=== PATIENT | male | born 1950 | race Caucasian/White ===

== ENCOUNTER 2022-07-06 07:35 | Inpatient (IN) | payer MEDICARE, MEDICAID, SELFPAY ==
[2022-07-06] VITALS (32 sets, daily range): BP systolic 83–114; BP diastolic 53–78; PULSE 85–119; RESP 13–24; TEMP 35.8; O2SAT 55–100
--- NOTE | 2022-07-06 07:51 | XR_ITS ---
WS: [id number] Exam: XR chest 1V portable [id number] Date/Time of Exam: 07/06/2022 8:25 AM Reason For Exam: dyspnea/cough No priors. The lungs are fully expanded and clear. Normal cardiomediastinal silhouette. No pleural effusions. Co arsening of interstitial markings noted that might represent chronic change. Bony structures are inta ct. Monitoring leads superimpose the chest. XR/XR chest 1V portable [id number] IMPRESSION: 1. No acute cardiopulmonary finding.
[2022-07-06 07:53] LABS: Glucose Point of Care > 600 mg/dL (70-110)
--- NOTE | 2022-07-06 07:58 | ED_ITS ---
HPI - General Adult General: Chief complaint: ER Hold Stated complaint: Slurred speech, Dizziness, Confusion, Weakness Time Seen by Provider: 07/06/22 07:44 Source: patient Mode of arrival: ambulatory History of Present Illness: 72-year-old male presents emergency room complaining of slurred speech dizziness and weakness confusion has been going on the last several days. He was seen his primary care doctor's office had a blood sugar of over 700. Evidently was advised to go to the emergency room but did not present until today he is a former smoker and former heavy drinker although he states he quit drinking some 20 to 30 years ago. He was recently. Symbicort and albuterol but has not picked that up yet. He is not a known diabetic at this point he has complained of polyuria polyphagia and polydipsia. Glucose on arrival and Accu-Chek is greater than 600. He denies any abdominal pain chest pain shortness of breath no hematochezia melena hematemesis cough cramps hematuria dysuria urgency or frequency. Onset (ago): minute(s) Severity: severe Relieving factors: none Exacerbating factors: none Associated symptoms: Reports confusion, decreased appetite, dyspnea, headach e(s), malaise, nausea, short of breath and weakness; Deny chest pain, cough, diaphoresis, fevers/chills, rash, palpitations, seizures, syncope or vomiting Treatments prior to arrival: none Review of Systems Const: Reports: malaise; Denies: fever(s), chills, fatigue or diaphoresis ENMT: Denies: throat pain, ear or mastoid pain, nasal discharge or nasal congestion Card: Denies: chest pain, palpitations or syncope Resp: Reports: dyspnea GI: Reports: nausea; Denies: abdominal pain or vomiting : Denies: flank pain, dysuria, urinary frequency or urinary urgency Skin/Breast: Denies: rash Neuro: Reports: headache(s) and confusion PFSH ED PFSH: Medical History COPD (chronic obstructive pulmonary disease) Recovering alcoholic Social History Smoking and tobacco status: former smoker Physical Exam Const: GENERAL APPEARANCE: cooperative and comfortable ORIENTATION/CONSCIOUSNESS: Yes awake and Yes oriented to time HENMT: COMMON NORMALS: normocephalic, atraumatic, hearing grossly normal bilaterally, external ears normal, EAC's normal, TM's normal bilaterally, Normal nasal mucous membranes and turbinates present, moist oral mucous membranes and oropharynx normal HEAD & SCALP: normocephalic and atraumatic NOSE: Normal nasal mucous membranes and turbinates present EXTERNAL EAR: Yes external ears normal EXTERNAL AUDITORY CANAL: EAC's normal TYMPANIC MEMBRANE: TM's normal bilaterally Resp: COMMON NORMALS: normal respiratory effort, No retractions, No use of accessory muscles and clear to auscultation bilaterally AUSCULTATION: clear to auscultation bilaterally Cardio: COMMON NORMALS: regular rate, regular rhythm and No murmurs present (Cardio) RATE: regular rate RHYTHM: regular rhythm GI: COMMON NORMALS: Soft to palpation and No hepatosplenomegaly present AUSCULTATION: Yes normoactive bowel sounds PALPATION: Yes Soft to palpation, No Tenderness to palpation present (GI), No Guarding due to palpation present (GI) and Yes No hepatosplenomegaly present Extremity: COMMON NORMALS: normal to inspection, capillary refill normal, no clubbing, cyanosis or edema, no calf tenderness and no pedal edema Neuro: SENSORIUM/ORIENTATION: Yes oriented to time Skin: COMMON NORMALS: no rashes or lesions noted GENERAL SKIN EXAM: no rashes or lesions noted Course Vital Signs: Vital signs: Vital Signs Temperature 96.5 F L 07/06/22 07:49 Pulse Rate 108 H 07/06/22 07:49 Respiratory Rate 21 H 07/06/22 07:49 Blood Pressure 93/59 07/06/22 07:49 [facility] - General Adult Medical Decision Making Acute metabolic encephalopathy secondary to his DKA CT of his head is negative chest x-ray is clear urine is still pending pH 696 positive ketones. Is been given 3 L of fluids started on insulin drip started given 10 units of IV push insulin. Altered mental the ICU discussed with hospitalist Medical Records I reviewed the patient's medical records. Lab Data I reviewed the patient's lab results. 07/06/22 08:00 07/06/22 08:00 Radiology Impressions Chest X-Ray 07/06/22 07:51 IMPRESSION: 1. No acute cardiopulmonary finding. Head CT 07/06/22 08:01 IMPRESSION: 1. No evidence of intracranial hemorrhage or mass effect. 2. Mild small vessel changes with moderate parenchymal volume loss. 3. Intracranial vascular calcification. 4. No acute intracranial findings. Laboratory Results WBC 14.3 10^3/uL (4.0-10.0) H 07/06/22 08:00 RBC 5.33 10^6/uL (4.1-5.3) H 07/06/22 08:00 Hgb 16.1 g/dL (11.7-16.6) 07/06/22 08:00 Hct 49.7 % (42.0-52.0) 07/06/22 08:00 MCV 93.2 fl (80-94) 07/06/22 08:00 MCH 30.2 pg (28.0-34.0) 07/06/22 08:00 MCHC 32.4 g/dL (30.0-36.0) 07/06/22 08:00 RDW 15.3 % (12.1-15.1) H 07/06/22 08:00 Plt Count 287 10^3/cmm (130-400) 07/06/22 08:00 MPV 9.0 fL (7.4-10.4) 07/06/22 08:00 Neut % (Auto) 84.8 % 07/06/22 08:00 Lymph % (Auto) 5.1 % 07/06/22 08:00 [place] % (Auto) 5.1 % 07/06/22 08:00 Eos % (Auto) 0.0 % 07/06/22 08:00 Baso % (Auto) 0.6 % 07/06/22 08:00 Neut # (Auto) 12.13 10^3/uL (1.8-7.7) H 07/06/22 08:00 Lymph # (Auto) 0.7 10^3/uL (0.8-4.8) L 07/06/22 08:00 [place] # (Auto) 0.7 10^3/uL (0.2-0.9) 07/06/22 08:00 Eos # (Auto) 0.0 10^3/uL (0.0-0.8) 07/06/22 08:00 Baso # (Auto) 0.1 10^3/uL (0.0-0.1) 07/06/22 08:00 Nucleated RBC % (auto) 0 % 07/06/22 08:00 Nucleated RBCs # 0.0 /100WBC 07/06/22 08:00 Specimen Type Arterial 07/06/22 08:11 Sample Site Radial, left 07/06/22 08:11 ABG pH 6.96 (7.35-7.45) L* 07/06/22 08:11 ABG pCO2 13.9 mmHg (35-45) L* 07/06/22 08:11 ABG pO2 129.0 mmHg (80.0-100.0) H 07/06/22 08:11 ABG HCO3 3.1 mmol/L (22-26) L 07/06/22 08:11 ABG O2 Saturation 97.1 07/06/22 08:11 ABG Base Excess -27.3 mmol/L (-2.0-2.0) L 07/06/22 08:11 Kevin Test Pos 07/06/22 08:11 A-a O2 Gradient 0.1 mmHg (5-10) L 07/06/22 08:11 Hematocrit 47.2 % (42-52) 07/06/22 08:11 Hgb O2 Saturation 94.5 % (95-100) L 07/06/22 08:11 Carboxyhemoglobin 0.8 %THgb (0.4-20.1) 07/06/22 08:11 Methemoglobin 1.9 % (0.4-1.5) H 07/06/22 08:11 Total Hemoglobin 15.4 g/dL (14-18) 07/06/22 08:11 Sodium 130.0 mmol/L (131-143) L 07/06/22 08:11 Potassium 5.2 mmol/L (3.5-5.0) H 07/06/22 08:11 Glucose 643.0 mg/dL (70-115) H 07/06/22 08:11 Ionized Calcium 1.3 mmol/L (1.1-1.4) 07/06/22 08:11 O2 Delivery Device None 07/06/22 08:11 Appeals Specialist ID [place] 07/06/22 08:11 Sodium 124 mmol/L (136-145) L 07/06/22 08:00 Potassium 5.5 mmol/L (3.5-5.1) H 07/06/22 08:00 Chloride 81 mmol/L (98-107) L 07/06/22 08:00 Carbon Dioxide 4 mmol/L (22-29) L* 07/06/22 08:00 Anion Gap 44.5 (5-19) H 07/06/22 08:00 BUN 35 mg/dL (8-23) H 07/06/22 08:00 Creatinine 2.0 mg/dL (0.7-1.2) H 07/06/22 08:00 GFR Calculation 33.2 mL/min (90-130) L 07/06/22 08:00 Glucose 635 mg/dL (65-115) H* 07/06/22 08:00 POC Glucose > 600 mg/dL (70-110) H* 07/06/22 09:15 Calculated Osmolality 296 mOsm/kg (285-295) H 07/06/22 08:00 Lactic Acid 5.0 mmol/L (0.5-2.2) H* 07/06/22 08:00 Calcium 9.2 mg/dL (8.5-10.5) 07/06/22 08:00 Magnesium 2.8 mg/dL (1.7-2.3) H 07/06/22 08:00 Total Bilirubin 0.3 mg/dL (0.15-1.2) 07/06/22 08:00 AST 18 U/L (0-40) 07/06/22 08:00 ALT 39 U/L (0-41) 07/06/22 08:00 Alkaline Phosphatase 123 U/L (40-130) 07/06/22 08:00 Troponin T Baseline 34 ng/L (0-15) H 07/06/22 08:00 Total Protein 7.6 g/dL (6.6-8.7) 07/06/22 08:00 Albumin 4.7 g/dL (3.5-5.2) 07/06/22 08:00 Globulin 2.9 g/dL (1.3-4.6) 07/06/22 08:00 Lipase 167 U/L (13-60) H 07/06/22 08:00 Serum Ketones Positive (Negative) H 07/06/22 08:00 Critical Care Time Critical Care Time: Critical Care Time: Yes Total Critical Care Time: 40 Attestation: The high probability of a clinically significant, sudden or life threatening deterioration of the patient's metabolic, DKA, encephalopathy system(s) required my full and direct attention, intervention and personal management. The critical care time is as shown. This time is in addition to time spent performing any reported procedures but includes the following: [x] Data and vital sign review and interpretation [x] Patient assessment, examination and intervention [x] Documentation [x] Medication orders and management Discharge Plan Discharge Patient Disposition: Admitted As Inpatient Clinical Impression: Diabetic ketoacidosis Condition: Stable Coding Level of Care Code ED Medical Record Technician for Maheshg Fwd Exam Detailed
--- NOTE | 2022-07-06 08:01 | CT_ITS ---
WS: [id number] CT HEAD TECHNIQUE: Noncontrast CT of the head obtained from the skullbase to the vertex. CLINICAL INFORMATION: Altered mental status slurred speech confusion COMPARISON: None. DLP: 1098.[address] scans at [facility] use at least one of these dose optimization techniques: automated e xposure control; mA and/or kV adjustment per patient size (includes targeted exams where dose is matc hed to clinical indication); or iterative reconstruction. FINDINGS: No evidence of intracranial hemorrhage or mass effect. Ventricular system and basal cisterns are wing nt. Mild small vessel changes with moderate parenchymal volume loss. No extra-axial fluid collections . Intracranial vascular calcification. Normal posterior nasopharynx. Normal parapharyngeal fat. Paranasal sinuses and mastoid air cells are well aerated. .Normal visualized soft tissues. CT/CT head wo con* [id number] IMPRESSION: 1. No evidence of intracranial hemorrhage or mass effect. 2. Mild small vessel changes with moderate parenchymal volume loss. 3. Intracranial vascular calcification. 4. No acute intracranial findings.
[2022-07-06] MEDS: sodium chloride 0.9% 1,000 ML 999 ML IV ×4 (08:02→11:23)
[2022-07-06] MEDS: ondansetron 2 mg/ML SDV 2 mL 4 MG IVP (08:03)
--- NOTE | 2022-07-06 08:03 | ECG_ITS ---
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 Measurements Intervals [place] Rate: 87 P: 0 TN: 0 QRS: 17 QRSD: 154 T: 106 QT: 408 QTc: 492 Interpretive Statements ATRIAL FIBRILLATION LEFT BUNDLE BRANCH BLOCK [120+ ms QRS DURATION, 80+ ms Q/S IN V1/V2, 85+ ms R IN I/aVL/V5/V6] No previous ECG available for comparison Electronically Signed On 07-07-2022 7:42:21 SOFTWARE IMPLEMENTATION PROJECT MANAGER by Fernando Herrera M.D. [email or web address] [email or web address]/store/[id number]
--- NOTE | 2022-07-06 08:18 | PC.NURSE ---
PT PLACED N CONTINUOUS NIBP, SPO2, AND CM
[2022-07-06 08:22] LABS: Alveolar-Arterial Oxygen Gradi 0.1 mmHg (5-10); Arterial Blood Gas Hematocrit 47.2 % (42-52); Base Excess ABG -27.3 mmol/L (-2.0-2.0); Blood Gas Allen Test Pos; Blood Gas Operator Identificat WALCI; Blood Gas Sample Site Radial, left; Blood Gas Sample Type Arterial; Carboxyhemoglobin 0.8 %THgb (0.4-20.1); HCO3 ABG 3.1 mmol/L (22-26); HGB O2 Sat 94.5 % (95-100); Ionized Calcium Level - ABG 1.3 mmol/L (1.1-1.4); Methemoglobin 1.9 % (0.4-1.5); Oxygen Saturation ABG 97.1; Potassium Level - ABG 5.2 mmol/L (3.5-5.0); Total Hemoglobin 15.4 g/dL (14-18)
[2022-07-06 08:23] LABS: ABG PCO2 13.9 mmHg (35-45); ABG PH Result 6.96 (7.35-7.45)
[2022-07-06 08:26] LABS: Basophils # 0.1 10^3/uL (0.0-0.1); Basophils % 0.6 %; Hematocrit 49.7 % (42.0-52.0); Hemoglobin 16.1 g/dL (11.7-16.6); Lymphocytes # 0.7 10^3/uL (0.8-4.8); Lymphocytes % 5.1 %; Mean Corpuscular HGB Conc 32.4 g/dL (30.0-36.0); Mean Corpuscular Hemoglobin 30.2 pg (28.0-34.0); Mean Corpuscular Volume 93.2 fl (80-94); Monocytes # 0.7 10^3/uL (0.2-0.9); Monocytes % 5.1 %; Neutrophils # 12.13 10^3/uL (1.8-7.7); Neutrophils % 84.8 %; Nucleated Red Blood Cells % 0 %; Platelet Count 287 10^3/cmm (130-400); Red Blood Count 5.33 10^6/uL (4.1-5.3); Red Cell Distribution Width 15.3 % (12.1-15.1); White Blood Count 14.3 10^3/uL (4.0-10.0)
[2022-07-06] MEDS: insulin regular-human 100 units/1 mL 10 UNIT IVP (08:46)
[2022-07-06 09:02] LABS: Alanine Aminotransferase 39 U/L (0-41); Albumin Level 4.7 g/dL (3.5-5.2); Alkaline Phosphatase 123 U/L (40-130); Anion Gap 44.5 (5-19); Aspartate Amino Transferase 18 U/L (0-40); Blood Urea Nitrogen 35 mg/dL (8-23); Calcium 9.2 mg/dL (8.5-10.5); Chloride 81 mmol/L (98-107); Globulin 2.9 g/dL (1.3-4.6); Glomerular Filtration Rate 33.2 mL/min (90-130); Lipase 167 U/L (13-60); Magnesium 2.8 mg/dL (1.7-2.3); Osmolality Calculated 296 mOsm/kg (285-295); Potassium 5.5 mmol/L (3.5-5.1); Sodium 124 mmol/L (136-145); Total Bilirubin 0.3 mg/dL (0.15-1.2); Total Protein 7.6 g/dL (6.6-8.7); Troponin(5th) Baseline 34 ng/L (0-15)
[2022-07-06 09:03] LABS: Ketone (Acetest) Serum Positive (Negative)
[2022-07-06 09:07] LABS: Carbon Dioxide 4 mmol/L (22-29); Glucose 635 mg/dL (65-115)
--- NOTE | 2022-07-06 09:52 | ECG_ITS ---
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 Measurements Intervals [place] Rate: 93 P: 0 [place]: 0 QRS: 27 QRSD: 137 T: 21 QT: 403 QTc: 503 Interpretive Statements ATRIAL FIBRILLATION LEFT BUNDLE BRANCH BLOCK [120+ ms QRS DURATION, 80+ ms Q/S IN V1/V2, 85+ ms R IN I/aVL/V5/V6] Compared to ECG 07/06/2022 08:03:16 No significant changes Electronically Signed On 07-07-2022 7:49:28 MEDIA SALES REPRESENTATIVE by Estefania Schuster M.D. [email or web address].[email or web address] general hospitalVaxx[facility]ault[facility] hospital.[employer]/store/OM/[id number]
[2022-07-06 10:02] LABS: Reflex Lactate Order REFLEX LACTIC ORDERD
--- NOTE | 2022-07-06 10:03 | PM.HP ---
Providers/Chief Complaint Admitting Physician: Jerry Flores MD, hospitalist Primary Care Provider: Mynor Lott MD Chief Complaint: Slurred speech, Dizziness, Confusion, Weakness History of Present Illness Reginald Mckeon is a 72 year old male presenting to the emergency department with elevated sugar. He reports he had recently been seen in clinic and sugar was about 700. He had not yet had any treatment started. Symptoms he had been having for quite a while were increased thirst, urination, dry mouth. More recently he started having some anorexia, and last night started vomiting repetitively. No blood in his emesis. No fever. Reports no prior history of diabetes, although he has not seen a doctor in over 40 years. He reports he used to drink very heavily but quit 20 years ago. Review of Systems General: Reports: 10 or more systems reviewed and unremarkable except in HPI and below Const: Reports: fatigue and malaise; Denies: fever(s) or chills Eyes: Reports: change in vision ENMT: Denies: throat pain Card: Denies: chest pain Resp: Denies: dyspnea GI: Reports: nausea and vomiting; Denies: abdominal pain, hematemesis, hematochezia or melena : Reports: urinary frequency Musc: Denies: neck pain Skin/Breast: Denies: rash Neuro: Denies: headache(s) Psych: Denies: anxiety or depression Endo: Reports: polyuria John/Lymph: Denies: easy bruising All/Imm: Denies: urticaria Medications/Allergies Home Medications Medication Instructions Recorded Confirmed Last Taken Type albuterol sulfate 90 mcg/actuation 2 puff inhalation Q4H PRN 07/06/22 07/06/22 Unknown History aerosol inhaler Shortness Of Breath budesonide-formoterol HFA 160 2 puff inhalation BID 07/06/22 07/06/22 Unknown History mcg-4.5 mcg/actuation aerosol inhaler Allergies Allergy/AdvReac Type Severity Reaction Status Date / Time No Known Allergies Allergy Verified 04/21/21 10:49 PFSH Acute PFSH: Medical History COPD (chronic obstructive pulmonary disease) Recovering alcoholic Family History (Updated 07/06/22 @ 11:30 by Jerry Flores MD) Other CAD (coronary artery disease) Cancer Social History (Updated 07/06/22 @ 11:30 by Jerry Flores MD) Smoking and tobacco status: former smoker Alcohol intake: former Substance/Drug Use: former Vitals/I&O/Wt Last Vital Signs Temp 96.5 F L 07/06/22 07:49 Pulse 108 H 07/06/22 07:49 Resp 21 H 07/06/22 07:49 BP 93/59 07/06/22 07:49 07/05/22 07/06/22 07/06/22 22:59 06:59 14:59 Intake Total 1616.05 / 1616.05 Balance 1616.05 / 1616.05 Weight last 48 hrs Weight 78.018 kg Physical Exam Narrative: General exam is a white male, alert and responsive, with mild tachypnea HEENT: Atraumatic normocephalic. Pupils equally round. Oropharynx is dry Neck is supple no lymphadenopathy thyromegaly Cardiovascular tachycardic, regular, no murmur Lungs clear no wheezing or crackles Abdomen is soft with positive bowel sounds. No obvious organomegaly exams deferred Extremities no cyanosis clubbing or edema, cap refill brisk Skin no rash Neuro no obvious focal deficits. Data 07/06/22 08:00 07/06/22 08:00 Other Labs: Troponin 34 with repeat of 31 Lipase 167 Serum ketones positive Lactic acid 5 Calcium 8.0 ABG demonstrated pH 6.96, PCO2 of 14, PO2 of 129 on room air Head CT no acute changes Chest x-ray negative EKG demonstrates sinus rhythm, left bundle branch block, borderline tachycardia, tracing with quite a bit of artifact Micro: Microbiology 07/06/22 08:10 Blood Culture - Preliminary Blood SPECIMEN COLLECTED A&P Assessment and plan (1) Diabetic ketoacidosis: Patient presents with DKA, with no prior history of diabetes Serial electrolytes, magnesium, phosphorus Appropriate fluid resuscitation is already been given in the emergency department Initiation of insulin drip When blood sugar becomes less than 250, initiate D5 half-normal saline with 20 mill equivalents of potassium per liter When anion gap is closed, consider initiation of long-acting insulin Check TSH Protonix 40 mg IV every 24 hours Consistent carb, clear liquid diet when able (2) Hyperkalemia: Likely secondary to acidosis, continue to follow (3) Acute kidney injury: Likely secondary to dehydration, continue to follow. Further work-up showed acute kidney injury persist Renally dose medicine, avoid renal toxic medication (4) Pseudohyponatremia: Secondary to marked hyperglycemia (5) Acute encephalopathy: Likely secondary to marked hyperglycemia/DKA consistent with acute metabolic encephalopathy. I expect this to resolve with treatment Plan Past history of alcoholism Full code Heparin for DVT prophylaxis Attestations Medical Necessity Statement*: Will require greater than 2 midnight stay secondary to new onset of DKA and patient with no previous history of diabetes Critical Care Time: The high probability of a clinically significant, sudden or life threatening deterioration of the patient's [endocrine, renal, metabolic] system(s) required my full and direct attention, intervention and personal management. The critical care time is as shown. This time is in addition to time spent performing any reported procedures but includes the following: [x] Data and vital sign review and interpretation [x] Patient assessment, examination and intervention [x] Documentation [x] Medication orders and management Critical Care Time (min): 55 Coding Level of Care Code Acute Code for Chg Fwd Diagnoses Diabetic ketoacidosis E11.10 Hyperkalemia E87.5 Acute kidney injury N17.9 Pseudohyponatremia R79.89 Acute encephalopathy G93.40
[2022-07-06 10:21] LABS: Glucose Point of Care > 600 mg/dL (70-110)
[2022-07-06 10:40] LABS: Troponin 5 2HR 31.21 ng/L (0-15)
[2022-07-06 10:41] LABS: Blood Urea Nitrogen 33 mg/dL (8-23); Chloride 92 mmol/L (98-107); Glomerular Filtration Rate 46.3 mL/min (90-130); Glucose 496 mg/dL (65-115); Osmolality Calculated 295 mOsm/kg (285-295); Sodium 128 mmol/L (136-145); Troponin 5 2HR Delta -2.79 ABS# (0-10)
[2022-07-06 10:44] LABS: Anion Gap 35.7 (5-19); Potassium 4.7 mmol/L (3.5-5.1)
[2022-07-06 10:45] LABS: Carbon Dioxide 5 mmol/L (22-29)
[2022-07-06] MEDS: insulin regular-human 250 UNIT in sodium chloride 0.9% 250 ML 14 UNIT IV (10:59)
[2022-07-06 11:25] LABS: Glucose Point of Care 502 mg/dL (70-110)
[2022-07-06] MEDS: heparin 5,000 unit/mL INJ 1 mL 5000 UNIT SUBCUT ×2 (11:26→23:04)
--- NOTE | 2022-07-06 11:49 | PC.NURSE ---
DR. BATISTA GAVE VERBAL ORDER TO HOLD D5 20MEQ POTASSIUM UNTIL PT BLOOD SUGAR IS LESS THAN OR EQUAL TO 250. DR. BATISTA GAVE VERBAL ORDER TO HOLD NS MAINTENANCE FLUID. VERBAL ORDERS READ BACK AND VERIFIED .
[2022-07-06] MEDS: sodium chlor 0.9% + KCl 20 mEq 20 MEQ/1,000 ML BAG 150 MEQ IV (11:59)
[2022-07-06 12:04] LABS: Thyroid Stimulating Hormone 3.96 uIU/mL (0.27-4.20)
[2022-07-06 12:07] LABS: Lactic Acid level (Lactate) 2.6 mmol/L (0.5-2.2)
[2022-07-06 12:31] LABS: Add Urine Microscopic? YES; Bilirubin Urine Neg (Negative); Blood Urine 3+ (Negative); Glucose Urine UA 4+ (Normal); Ketones Urine 3+ (Negative); Leukocyte Esterase Urine Negative (Negative); Nitrate Urine Negative (Negative); Protein Urine 1+ (Negative); RBC Urine 0-4 /hpf (0-2); Specific Gravity, Urine 1.025 (1.005-1.030); Squamous Epithelial Cell Urine 0-4 /hpf (0-5); Urine Appearance Clear (CLEAR); Urine Color Yellow (Yellow); Urobilinogen Urine Norm (Negative); WBC Urine 0-4 /hpf (0-5); pH Urine 5 (5-7)
[2022-07-06 12:32] LABS: Add Urine Culture? Yes; Amorphous Sediment Urine 2+ /hpf; Bacteria Urine 1+ /hpf; Mucus Urine TRACE /hpf
--- NOTE | 2022-07-06 12:56 | PC.NURSE ---
DR. BATISTA NOTIFIED OF PT NEW BLOOD SUGAR 421. DR. BATISTA NOTIFIED DRIP RATE DID NOT CHANGE
[2022-07-06 12:58] LABS: Glucose Point of Care 351 mg/dL (70-110)
--- NOTE | 2022-07-06 12:58 | PC.NURSE ---
BG 351
--- NOTE | 2022-07-06 13:52 | ECG_ITS ---
[facility] Test Date: 2022-07-06 Pat Name: Reginald Mckeon Department: Room: Gender: Male Hr Specialist: : 1950 Requested By: Shashi Laird Order Number: [id number] Lorena MD: Fernando Herrera M.D. Measurements Intervals [place] Rate: 95 P: 0 TX: 0 QRS: 9 QRSD: 131 T: 81 QT: 396 QTc: 499 Interpretive Statements UNCERTAIN REGULAR RHYTHM LEFT BUNDLE BRANCH BLOCK [120+ ms QRS DURATION, 80+ ms Q/S IN V1/V2, 85+ ms R IN I/aVL/V5/V6] Compared to ECG 07/06/2022 11:42:04 Atrial fibrillation no longer present Electronically Signed On 07-07-2022 7:48:56 SINGLE STROKE PREFORMER by Fernando Herrera M.D. [email or web address]osOrlando Telephone Companyket[email or web address]/[id number]
[2022-07-06 13:59] LABS: Glucose Point of Care 317 mg/dL (70-110)
[2022-07-06] MEDS: albuterol 2.5 mg/3 mL Neb INHALATION ×2 (14:23→19:52)
[2022-07-06] MEDS: ipratropium 0.5 mg/2.5 mL Neb INHALATION ×2 (14:23→19:52)
[2022-07-06 15:01] LABS: Glucose Point of Care 240 mg/dL (70-110)
[2022-07-06 15:10] LABS: Anion Gap 27.1 (5-19); Blood Urea Nitrogen 33 mg/dL (8-23); Calcium 8.3 mg/dL (8.5-10.5); Chloride 101 mmol/L (98-107); Glomerular Filtration Rate 46.3 mL/min (90-130); Glucose 219 mg/dL (65-115); Magnesium 2.2 mg/dL (1.7-2.3); Osmolality Calculated 288 mOsm/kg (285-295); Potassium 4.1 mmol/L (3.5-5.1); Sodium 132 mmol/L (136-145)
[2022-07-06 15:13] LABS: Carbon Dioxide 8 mmol/L (22-29)
[2022-07-06] MEDS: D5-NS 0.45% + KCL 20 mEq 20 MEQ/1,000 ML BAG 100 MEQ IV ×2 (15:35→23:04)
[2022-07-06 16:15] LABS: Glucose Point of Care 196 mg/dL (70-110)
[2022-07-06 17:08] LABS: Glucose Point of Care 421 mg/dL (70-110)
[2022-07-06 17:08] LABS: Glucose Point of Care 528 mg/dL (70-110)
[2022-07-06 18:08] LABS: Glucose Point of Care 155 mg/dL (70-110)
[2022-07-06 18:08] LABS: Glucose Point of Care 153 mg/dL (70-110)
[2022-07-06 18:08] LABS: Glucose Point of Care 430 mg/dL (70-110)
[2022-07-06 19:10] LABS: Glucose Point of Care 164 mg/dL (70-110)
[2022-07-06] MEDS: budesonide 0.5 mg/2 mL Neb INHALATION (19:52)
[2022-07-06 20:12] LABS: Glucose Point of Care 154 mg/dL (70-110)
[2022-07-06 22:08] LABS: Anion Gap 17.3 (5-19); Blood Urea Nitrogen 28 mg/dL (8-23); Calcium 8.5 mg/dL (8.5-10.5); Carbon Dioxide 16 mmol/L (22-29); Chloride 106 mmol/L (98-107); Glomerular Filtration Rate 59.9 mL/min (90-130); Glucose 145 mg/dL (65-115); Osmolality Calculated 290 mOsm/kg (285-295); Potassium 3.3 mmol/L (3.5-5.1); Sodium 136 mmol/L (136-145)
[2022-07-07] VITALS (29 sets, daily range): BP systolic 84–123; BP diastolic 46–72; PULSE 87–143; RESP 15–28; TEMP 36.7–37.2; O2SAT 59–93
[2022-07-07 01:04] LABS: Glucose Point of Care 140 mg/dL (70-110)
[2022-07-07 01:04] LABS: Glucose Point of Care 125 mg/dL (70-110)
[2022-07-07 01:04] LABS: Glucose Point of Care 132 mg/dL (70-110)
[2022-07-07 01:04] LABS: Glucose Point of Care 129 mg/dL (70-110)
[2022-07-07 01:04] LABS: Glucose Point of Care 129 mg/dL (70-110)
[2022-07-07 04:17] LABS: Blood Urea Nitrogen 24 mg/dL (8-23); Calcium 8.4 mg/dL (8.5-10.5); Carbon Dioxide 17 mmol/L (22-29); Glomerular Filtration Rate 83.4 mL/min (90-130); Glucose 81 mg/dL (65-115); Magnesium 2.1 mg/dL (1.7-2.3)
[2022-07-07 04:18] LABS: Basophils % 0.1 %; Eosinophils % 0.1 %; Hematocrit 37.4 % (42.0-52.0); Hemoglobin 13.2 g/dL (11.7-16.6); Lymphocytes # 0.5 10^3/uL (0.8-4.8); Mean Corpuscular HGB Conc 35.3 g/dL (30.0-36.0); Mean Corpuscular Hemoglobin 30.9 pg (28.0-34.0); Mean Platelet Volume 10.4 fL (7.4-10.4); Monocytes # 0.7 10^3/uL (0.2-0.9); Monocytes % 8.9 %; Neutrophils # 6.95 10^3/uL (1.8-7.7); Neutrophils % 84.1 %; Nucleated Red Blood Cells % 0 %; Platelet Count 123 10^3/cmm (130-400); Red Blood Count 4.27 10^6/uL (4.1-5.3); Red Cell Distribution Width 15.4 % (12.1-15.1); White Blood Count 8.3 10^3/uL (4.0-10.0)
[2022-07-07 04:19] LABS: Mean Corpuscular Volume 87.6 fl (80-94)
[2022-07-07 04:50] LABS: Chloride 104 mmol/L (98-107); Osmolality Calculated 279 mOsm/kg (285-295); Sodium 133 mmol/L (136-145)
[2022-07-07 05:01] LABS: Anion Gap 15.3 (5-19); Potassium 3.3 mmol/L (3.5-5.1)
[2022-07-07 05:03] LABS: Phosphorus 0.7 mg/dL (2.5-4.5)
[2022-07-07 06:05] LABS: Glucose Point of Care 98 mg/dL (70-110)
[2022-07-07 06:05] LABS: Glucose Point of Care 87 mg/dL (70-110)
[2022-07-07 06:05] LABS: Glucose Point of Care 98 mg/dL (70-110)
[2022-07-07 06:05] LABS: Glucose Point of Care 100 mg/dL (70-110)
[2022-07-07 06:05] LABS: Glucose Point of Care 84 mg/dL (70-110)
--- NOTE | 2022-07-07 07:03 | PC.NURSE ---
Critical Phos was sent via voalte to Dr. Jolley. No response was received.
[2022-07-07 07:53] LABS: Glucose Point of Care 103 mg/dL (70-110)
[2022-07-07] MEDS: budesonide 0.5 mg/2 mL Neb INHALATION (07:57)
[2022-07-07] MEDS: ipratropium 0.5 mg/2.5 mL Neb INHALATION ×2 (07:57→13:34)
[2022-07-07] MEDS: albuterol 2.5 mg/3 mL Neb INHALATION ×2 (07:57→13:34)
[2022-07-07 08:29] LABS: Estmated Average Glucose 306; Hemoglobin A1C 12.3 % (4.0-6.0)
--- NOTE | 2022-07-07 09:04 | P.PN_ITS ---
Subjective Subjective: Reginald reports he is feeling better. No nausea. Denies any abdominal pain. He is ready to eat. Medications: Reviewed: Yes Vitals/I&O/Wt Last Vital Signs Temp 96.5 F L 07/06/22 07:49 Pulse 87 07/07/22 07:57 Resp 17 07/07/22 07:57 BP 84/52 07/07/22 06:00 Pulse Ox 92 07/07/22 07:57 O2 Del Method 07/07/22 07:57 07/06/22 07/07/22 07/07/22 22:59 06:59 14:59 Intake Total 1624.213 / 4283.430 1269.103 / 5552.533 Output Total 350 / 850 Balance 1624.213 / 3783.430 919.103 / 4702.533 Weight last 48 hrs Weight 77.564 kg Weight 78.018 kg Physical Exam Narrative: General exam is a white male no distress Neck is supple no lymphadenopathy thyromegaly Cardiovascular tachycardic, regular, no murmur Lungs clear no wheezing or crackles Abdomen is soft with positive bowel sounds. No obvious organomegaly Extremities no cyanosis clubbing or edema, cap refill brisk Skin no rash Data 07/07/22 02:55 07/07/22 02:55 Micro: Microbiology 07/06/22 08:10 Blood Culture - Preliminary Blood NEGATIVE TO DATE 07/06/22 08:12 Blood Culture - Preliminary Blood SPECIMEN COLLECTED A&P Assessment and plan (1) Diabetic ketoacidosis: Patient presents with DKA, with no prior history of diabetes Anion gap is closed Discontinue insulin drip, placed on diet, initiate sliding scale, initiate long acting Lantus Diabetic education Change fluids for maintenance fluids TSH was checked and normal Change Protonix to p.o. (2) Hyperkalemia: Resolved (3) Acute kidney injury: Likely secondary to dehydration, continue to follow. Resolved (4) Pseudohyponatremia: Resolved (5) Acute encephalopathy: Likely secondary to marked hyperglycemia/DKA consistent with acute metabolic enc ephalopathy. Resolved Plan Hypokalemia and hypophosphatemia, supplement Past history of alcoholism Full code Heparin for DVT prophylaxis Probable transfer out of ICU today. Attestations Medical Necessity Statement*: Needs continued hospitalization, transitioning to subcutaneous insulin from insulin drip. Coding Level of Care Code Acute Code for Chg Fwd Diagnoses Diabetic ketoacidosis E11.10 Hyperkalemia E87.5 Acute kidney injury N17.9 Pseudohyponatremia R79.89 Acute encephalopathy G93.40
[2022-07-07 09:15] LABS: Glucose Point of Care 163 mg/dL (70-110)
[2022-07-07] MEDS: sodium chlor 0.45% +KCl 20 mEq 20 MEQ/1,000 ML BAG 75 MEQ IV (09:25)
[2022-07-07] MEDS: insulin glargine 100 units/1 mL 20 UNIT SUBCUT (09:34)
[2022-07-07] MEDS: heparin 5,000 unit/mL INJ 1 mL 5000 UNIT SUBCUT ×2 (09:45→23:57)
--- NOTE | 2022-07-07 12:01 | PC.CHAP ---
Pastoral Care Encounter/Spiritual Assessment Type of Contact [] Declined neighborhood conservation officer visit [] Patient/Family/Request visit [] Outpatient visit [] Follow-up visit [] Physician referral [] Code/Alert [x] Routine visit [] Staff referral [] Actively dying [] Patient sleeping [] Family support [] [] Out of room [] Palliative care [] [x] Receiving care in room [] Pre-surgical visit [] Trauma [] Long length of stay [x] ICU visit [] Other: Relational/Emotional Strength [] Patient feels connected with others/family/visitors/staff [] Distress [] Loneliness/isolation [] Abandonment Spirituality of Patient [] Person of [place] [] Attends Samaritan of their [place] [] Believes in Prayer [] Reads Bible or Cheondoism materials [] There are Spiritual issues to be addressed Software Developer Interventions [x] Prayer [] Active listening [] Non-anxious presence [] Spiritual/emotional support [] Crisis/trauma care [] Spiritual counseling [] Bereavement support [] Provided bereavement packet [] Provided Bible/devotional materials [] Provided toy/stuffed animal, coloring book to patient or family member [] Provided Communion [] Anointing/[place] [] Salvation [x] Completed spiritual assessment [] Other: Impact on Illness or Injury [] Angry [] Fearful [] Anxious [] Often cries [] Exhaustion [] Unable to work [] Unable to attend amish [] Unable to walk/stand [] Unable to read [] Unable to drive [] Unable to eat/drink [] Unable to sleep [] Unable to be with family [] Patient intubated [] Other: Summary Time spent with patient
[2022-07-07 12:16] LABS: Glucose Point of Care 323 mg/dL (70-110)
[2022-07-07] MEDS: insulin lispro 100 unit/1 mL SUBCUT (12:38)
[2022-07-07 13:41] LABS: Anion Gap 23.1 (5-19); Blood Urea Nitrogen 20 mg/dL (8-23); Calcium 8.2 mg/dL (8.5-10.5); Carbon Dioxide 12 mmol/L (22-29); Chloride 97 mmol/L (98-107); Glomerular Filtration Rate 83.4 mL/min (90-130); Glucose 340 mg/dL (65-115); Osmolality Calculated 282 mOsm/kg (285-295); Potassium 4.1 mmol/L (3.5-5.1); Sodium 128 mmol/L (136-145)
[2022-07-07] MEDS: insulin regular-human 250 UNIT in sodium chloride 0.9% 250 ML 11.62 UNIT IV (15:18)
[2022-07-07] MEDS: D5-NS 0.45% + KCL 20 mEq 20 MEQ/1,000 ML BAG 125 MEQ IV ×2 (15:19→23:57)
[2022-07-07 16:04] LABS: Glucose Point of Care 443 mg/dL (70-110)
[2022-07-07 16:31] LABS: Glucose Point of Care 449 mg/dL (70-110)
[2022-07-07 17:29] LABS: Glucose Point of Care 381 mg/dL (70-110)
[2022-07-07 18:54] LABS: Glucose Point of Care 415 mg/dL (70-110)
--- NOTE | 2022-07-07 18:54 | PC.NURSE ---
Shift Note: Pt rested in bed throughout the shift. No nausea or vomiting this shift. He was off the insulin gtt from 0700 [id number]. It was restarted due to his anion gap. He is tolerating it well. He has ate all of his meals. He uses the urianl, 1200ml output noted. New diabetic teaching done: insulin, long and shoft acting, blood sugar checks, insulin syringe measurement and use done. Pt very responsive and able to demonstrated/verbalize understanding. Frequent safety and comfort rounds continue. Orders and/or nursing care completed as indicated. Patient monitored for response to intervention and treatment(s). Education provided includes insulins, diabetes, hypoglycemia, etc. thoroughly discussed Patient verbalized and demonstrated understanding. Will continue to monitor.
[2022-07-07 19:43] LABS: Glucose Point of Care 306 mg/dL (70-110)
[2022-07-07 21:01] LABS: Blood Urea Nitrogen 19 mg/dL (8-23); Calcium 8.5 mg/dL (8.5-10.5); Carbon Dioxide 18 mmol/L (22-29); Chloride 99 mmol/L (98-107); Glomerular Filtration Rate 73.9 mL/min (90-130); Glucose 247 mg/dL (65-115); Magnesium 2.1 mg/dL (1.7-2.3); Osmolality Calculated 281 mOsm/kg (285-295); Sodium 130 mmol/L (136-145)
[2022-07-07 21:09] LABS: Anion Gap 16.5 (5-19); Potassium 3.5 mmol/L (3.5-5.1)
[2022-07-07 21:24] LABS: Glucose Point of Care 324 mg/dL (70-110)
[2022-07-07 22:58] LABS: Glucose Point of Care 95 mg/dL (70-110)
[2022-07-08] VITALS (31 sets, daily range): BP systolic 82–116; BP diastolic 49–91; PULSE 87–128; RESP 18–32; TEMP 36.8–38.8; O2SAT 78–94
[2022-07-08 01:58] LABS: Blood Urea Nitrogen 16 mg/dL (8-23); Calcium 8.2 mg/dL (8.5-10.5); Carbon Dioxide 19 mmol/L (22-29); Chloride 102 mmol/L (98-107); Glomerular Filtration Rate 95.6 mL/min (90-130); Glucose 90 mg/dL (65-115); Osmolality Calculated 273 mOsm/kg (285-295); Sodium 131 mmol/L (136-145)
[2022-07-08 02:00] LABS: Anion Gap 13.5 (5-19)
[2022-07-08 02:01] LABS: Potassium 3.5 mmol/L (3.5-5.1)
[2022-07-08] MEDS: insulin glargine 100 units/1 mL 10 UNIT SUBCUT (03:21)
[2022-07-08 04:45] LABS: Glucose Point of Care 166 mg/dL (70-110)
[2022-07-08 05:22] LABS: Glucose Point of Care 118 mg/dL (70-110)
[2022-07-08 05:22] LABS: Glucose Point of Care 302 mg/dL (70-110)
[2022-07-08 05:22] LABS: Glucose Point of Care 126 mg/dL (70-110)
[2022-07-08 05:22] LABS: Glucose Point of Care 127 mg/dL (70-110)
[2022-07-08 05:22] LABS: Glucose Point of Care 137 mg/dL (70-110)
[2022-07-08 05:22] LABS: Glucose Point of Care 95 mg/dL (70-110)
[2022-07-08 05:58] LABS: Basophils % 0.2 %; Hemoglobin 11.3 g/dL (11.7-16.6); Lymphocytes # 0.5 10^3/uL (0.8-4.8); Lymphocytes % 9.6 %; Mean Corpuscular HGB Conc 35.3 g/dL (30.0-36.0); Mean Corpuscular Hemoglobin 31.1 pg (28.0-34.0); Mean Corpuscular Volume 88.2 fl (80-94); Monocytes # 0.5 10^3/uL (0.2-0.9); Monocytes % 9.2 %; Neutrophils # 4.44 10^3/uL (1.8-7.7); Neutrophils % 80.3 %; Nucleated Red Blood Cells % 0 %; Platelet Count 90 10^3/cmm (130-400); Red Blood Count 3.63 10^6/uL (4.1-5.3); Red Cell Distribution Width 15.5 % (12.1-15.1); White Blood Count 5.5 10^3/uL (4.0-10.0)
[2022-07-08 06:19] LABS: Anion Gap 16.3 (5-19); Blood Urea Nitrogen 14 mg/dL (8-23); Carbon Dioxide 18 mmol/L (22-29); Chloride 99 mmol/L (98-107); Glomerular Filtration Rate 95.6 mL/min (90-130); Glucose 202 mg/dL (65-115); Magnesium 1.9 mg/dL (1.7-2.3); Osmolality Calculated 276 mOsm/kg (285-295); Phosphorus 1.7 mg/dL (2.5-4.5); Potassium 3.3 mmol/L (3.5-5.1); Sodium 130 mmol/L (136-145)
[2022-07-08] MEDS: ipratropium 0.5 mg/2.5 mL Neb INHALATION ×2 (08:13→20:01)
[2022-07-08] MEDS: albuterol 2.5 mg/3 mL Neb INHALATION ×2 (08:13→20:01)
[2022-07-08] MEDS: budesonide 0.5 mg/2 mL Neb INHALATION ×2 (08:13→20:00)
[2022-07-08 08:25] LABS: Glucose Point of Care 234 mg/dL (70-110)
--- NOTE | 2022-07-08 08:40 | PM.PN ---
Subjective Subjective: Reginald went back on an insulin drip yesterday afternoon. Anion gap closed him this was discontinued late in the night. He states he feels good. He has had a bowel movement. No pain. Denies any nausea or vomiting. Medications: Reviewed: Yes Vitals/I&O/Wt Last Vital Signs Temp 98.3 F 07/08/22 04:00 Pulse 99 07/08/22 08:19 Resp 18 07/08/22 08:14 BP 90/56 07/08/22 06:00 Pulse Ox 92 07/08/22 08:14 O2 Del Method 07/08/22 08:14 07/07/22 07/08/22 07/08/22 22:59 06:59 14:59 Intake Total 1100.331 / 3350.3709 1569.624 / 4919.9949 Output Total 700 / 1500 275 / 1775 Balance 400.331 / 1850.3709 1294.624 / 3144.9949 Weight last 48 hrs Weight 78.1 kg Weight 77.564 kg Physical Exam Narrative: General exam is a white male no distress Neck is supple no lymphadenopathy thyromegaly Cardiovascular tachycardic, regular, no murmur Lungs clear no wheezing or crackles Abdomen is soft with positive bowel sounds. No obvious organomegaly Extremities no cyanosis clubbing or edema, cap refill brisk Skin no rash Data 07/08/22 05:40 07/08/22 05:40 Micro: Microbiology 07/06/22 08:12 Blood Culture - Preliminary Blood NEGATIVE TO DATE 07/06/22 12:10 Urine Culture - Preliminary Urine,Clean Catch 07/06/22 08:10 Blood Culture - Preliminary Blood NEGATIVE TO DATE A&P Assessment and plan (1) Diabetic ketoacidosis: Patient presents with DKA, with no prior history of diabetes Anion gap is closed again Lantus has been started. Continue 20 units daily. He had 10 units earlier this morning. 5 units insulin base, with sliding scale superimposed Diabetic education TSH was checked and normal Change Protonix to p.o. Continue oral hydration BMP at 1300 (2) Hyperkalemia: Resolved (3) Acute kidney injury: Likely secondary to dehydration, continue to follow. Resolved (4) Pseudohyponatremia: Resolved (5) Acute encephalopathy: Likely secondary to marked hyperglycemia/DKA consistent with acute metabolic encephalopathy. Resolved Plan Hypokalemia and hypophosphatemia, supplement potassium again today Past history of alcoholism Full code Heparin for DVT prophylaxis Transfer out of ICU Attestations Medical Necessity Statement*: Needs continued hospitalization for adjustment of insulin regimen prior to discharge home secondary to recurrent DKA in this patient with new diagnosis of diabetes. Coding Level of Care Code Acute Code for Chg Fwd Diagnoses Diabetic ketoacidosis E11.10 Hyperkalemia E87.5 Acute kidney injury N17.9 Pseudohyponatremia R79.89 Acute encephalopathy G93.40
[2022-07-08] MEDS: potassium chloride ER 20 mEq Tablet 40 MEQ PO ×2 (08:57→12:36)
[2022-07-08] MEDS: pantoprazole DR 40 mg Tablet PO (08:57)
[2022-07-08] MEDS: insulin glargine 100 units/1 mL 20 UNIT SUBCUT ×2 (08:59→17:45)
--- NOTE | 2022-07-08 09:06 | PC.NURSE ---
Dr Flores called the unit, Pt to get set rate 5units of Humalog plus sliding scale. Set rate came across MAR for lunch. So Dr Flores gave one time orders for 14units this am for his 238mg/dl blood sugar.
[2022-07-08] MEDS: insulin lispro 100 unit/1 mL 14 UNIT SUBCUT (09:35)
[2022-07-08 11:53] LABS: Glucose Point of Care 322 mg/dL (70-110)
[2022-07-08] MEDS: heparin 5,000 unit/mL INJ 1 mL 5000 UNIT SUBCUT (12:35)
[2022-07-08] MEDS: insulin lispro 100 unit/1 mL SUBCUT ×6 (12:36→20:14)
--- NOTE | 2022-07-08 12:45 | USCV_ITS ---
Reginald Mckeon Age: 72 Gender: M : 1950 Exam Date: 07/08/2022 14:23 Ordering Phys: Jerry Flores MD Technologist: JO ANN Exam Location: [facility] [place] Indication: HYPOTENSION BP: 96 / 50 HR: 93 Rhythm: Other Technical Quality: Technically difficult study MEASUREMENTS (Male / Female) Normal Values 2D ECHO LVOT Diameter 2.0 cm LA Diameter 2.5 cm LA Width 3.7 cm LA Height 4.4 cm RA Width 3.5 cm RA Height 4.2 cm Aorta at Sinotubular Diameter 2.4 cm IVC Diameter 1.4 cm M-MODE Aortic Annulus Diameter 2.4 cm LA Ao Ratio MM 1.0 MV E Point Septal Separation 0.3 cm DOPPLER Right Atrial Pressure 3.0 mmHg PV Peak Velocity 246.0 cm/s RV Acceleration Time 0.1 s RV Ejection Time 0.3 s RV AcT/ET 0.5 FINDINGS Left Ventricle Normal left ventricular size, systolic function with no diagnostic regional wall motion abnormalities. Left ventricular ejection fraction is estimated at 55 %. Right Ventricle Normal right ventricular size and systolic function. Right Atrium Normal right atrial size. Left Atrium Normal left atrial size. Mitral Valve Structurally normal mitral valve. No mitral valve stenosis. Trace mitral valve regurgitation. Aortic Valve Structurally normal trileaflet aortic valve. No aortic valve stenosis. No aortic valve regurgitation. Tricuspid Valve Structurally normal tricuspid valve. No tricuspid valve stenosis. Trace to mild tricuspid valve regurgitation. Pulmonic Valve Pulmonic valve not well visualized. No pulmonary valve stenosis. No signifcant pulmonary valve regurgitation. Pericardium Small circumferential pericardial effusion. No evidence of hemodynamic compromise. Aorta Normal size aortic root and proximal ascending aorta. IVC Normal IVC dimension with >50% respiratory change of the inferior vena cava. CONCLUSIONS 1. Normal left ventricular size, systolic function with no diagnostic regional wall motion abnormalities. Left ventricular ejection fraction is estimated at 55 %. 2. Trace to mild tricuspid valve regurgitation. 3. Small circumferential pericardial effusion. No evidence of hemodynamic compromise. 4. No prior similar studies to compare. Estefania Schuster MD (Electronically Signed) Final Date: 08 July 2022 17:45 S
--- NOTE | 2022-07-08 12:55 | ECG_ITS ---
[facility] Test Date: 2022-07-08 Pat Name: Reginald Mckeon Department: Room: ICU01 Gender: Male Branch Coordinator: : 1950 Requested By: Jerry Combs Order Number: [id number] Lorena MD: Fernando Herrera M.D. Measurements Intervals [place] Rate: 116 P: 0 AL: 0 QRS: -4 QRSD: 128 T: 146 QT: 330 QTc: 459 Interpretive Statements ATRIAL FIBRILLATION WITH RAPID VENTRICULAR RESPONSE LEFT BUNDLE BRANCH BLOCK [120+ ms QRS DURATION, 80+ ms Q/S IN V1/V2, 85+ ms R IN I/aVL/V5/V6] Compared to ECG 07/06/2022 14:52:44 No significant changes Electronically Signed On 07-08-2022 21:45:06 TROMPER by Fernando Herrera M.D. [id number]
--- NOTE | 2022-07-08 12:58 | CT_ITS ---
WS: [id number] CTA CHEST WITH ABDOMEN PELVIS TECHNIQUE: Contrast enhanced CTA of the chest followed by abdomen pelvis with coronal and sagittal re formatted images and additional MIP Images. CLINICAL INFORMATION: hypotension, tachycardia COMPARISON: None. DLP: 936.[address] scans at [facility] use at least one of these dose optimization techniques: automated e xposure control; mA and/or kV adjustment per patient size (includes targeted exams where dose is matc hed to clinical indication); or iterative reconstruction. FINDINGS: CTA CHEST: Proximal main pulmonary arteries are normal. A few small filling defects in the LEFT upper lobe subse gmental pulmonary artery suspicious for small distal pulmonary emboli. Normal caliber thoracic aorta. Coronary calcification. No axillary lymphadenopathy. No mediastinal or hilar lymphadenopathy. Moderate chronic emphysematous changes. Tiny bilateral pleural effusions with patchy infiltrates in t he lung bases suspicious for pneumonia. Additional hazy groundglass infiltrates in the inferior segme nts of both upper lobes. Mild thoracic curve. CT ABDOMEN PELVIS: Mild diffuse fatty infiltration liver. Hepatic and splenic granulomas. Cholelithiasis with large gall stones. No gallbladder wall thickening or pericholecystic fluid. Elongated gallbladder can be further evaluated with ultrasound. Mild gallbladder wall enhancement. Normal portal vein and splenic vein. S plenic granulomas. Normal GE junction. Normal pancreatic parenchymal enhancement. Normal caliber abdo mihaela aorta. Celiac and SMA are patent. Moderate aortic calcification. Slightly ectatic abdominal aor ta. Bilateral adrenal nodules likely adenomas measuring 19 mm in the LEFT and 15 mm on the RIGHT. No hydr onephrosis in either kidney. Normal renal parenchymal enhancement Normal sigmoid colon. Submucosal enhancement in the RIGHT ascending colon with mild surrounding indur ation suspicious for mild infectious or inflammatory colitis. Urine distended bladder. Small amount of free fluid in the pelvis. . No evidence of high-grade small or large bowel obstruction. Normal appendix in the RIGHT lower quadrant. Disc space narrowing L5-S1 w ith vacuum disc phenomenon. CT/CT angio chest w abd pel w con IMPRESSION: 1. Small bilateral pleural effusions with patchy infiltrates in the lung bases suspicious for pneumonia. 2. Tiny filling defects in a few LEFT upper lobe subsegmental pulmonary arteri es suspicious for pulmonary embolus. Proximal main pulmonary arteries are zoya l. 3. Submucosal enhancement in the RIGHT ascending colon with slight surrounding induration suspicious for mild infectious or inflammatory colitis. 4. Elongated distended gallbladder with large gallstones. Mild gallbladder wal l enhancement. No pericholecystic fluid. This could be further evaluated with u ltrasound. 5. No other acute findings in the abdomen or pelvis. Notified Jerry Flores MD at 07/08/2022 2:31 PM.
[2022-07-08] MEDS: acetaminophen 325 mg Tablet 650 MG PO ×2 (13:35→20:36)
[2022-07-08 13:48] LABS: Blood Urea Nitrogen 12 mg/dL (8-23); Calcium 8.5 mg/dL (8.5-10.5); Carbon Dioxide 16 mmol/L (22-29); Chloride 96 mmol/L (98-107); Creatinine Clr Calc Pharmacy 84.0432; Glomerular Filtration Rate 83.4 mL/min (90-130); Glucose 367 mg/dL (65-115); Osmolality Calculated 281 mOsm/kg (285-295); Sodium 128 mmol/L (136-145)
[2022-07-08 13:52] LABS: Anion Gap 20.1 (5-19); Potassium 4.1 mmol/L (3.5-5.1)
[2022-07-08] MEDS: iohexol 350 mg/mL 500 mL Btl (per mL) IV (14:01)
[2022-07-08] MEDS: vancomycin 1,250 MG/250 ML PIGGYBACK 250 MG IV (14:18)
[2022-07-08] MEDS: sodium chloride 0.9% 250 ML IV (14:19)
[2022-07-08] MEDS: sodium chloride 0.9% 1,000 ML 75 ML IV (14:19)
--- NOTE | 2022-07-08 14:38 | USCV_ITS ---
Reginald Mckeon Age: 72 Gender: M : 1950 Exam Date: 07/08/2022 14:56 Ordering Phys: Jerry Flores MD Technologist: JO ANN Exam Location: [facility] [place] Indication: PE HISTORY: Pulmonary embolism. PROCEDURES: Venous duplex imaging was performed in bilateral lower extremities. The following venous structures were evaluated: common femoral vein, profunda vein, proximal portion of the greater saphenous vein, superficial femoral vein, and the popliteal vein. In addition, the posterior tibial and peroneal trunk were evaluated. Serial compression, augmentation maneuvers, and spectral Doppler flow evaluation were performed. FINDINGS: No evidence of DVT seen in any vessel visualized at this time. CONCLUSIONS No evidence of right lower extremity DVT. No evidence of left lower extremity DVT. Ger Ceja MD (Electronically Signed) Final Date: 08 July 2022 15:20 S
[2022-07-08] MEDS: enoxaparin 80 mg/0.8 mL Syringe SUBCUT (15:09)
[2022-07-08] MEDS: piperacillin-tazobactam 3.375 GM in sodium chloride 0.9% (plus) 50 ML IV ×2 (15:19→23:02)
[2022-07-08 15:28] LABS: Glucose Point of Care 346 mg/dL (70-110)
[2022-07-08 15:31] LABS: Influenza A by IFA negative (Negative); Influenza B by IFA negative (Negative)
[2022-07-08 15:40] LABS: SARS Covid-2 Antigen negative (Negative)
[2022-07-08 15:41] LABS: Add Urine Culture? No; Amorphous Sediment Urine 1+ /hpf; Bacteria Urine TRACE /hpf; Bilirubin Urine Neg (Negative); Blood Urine 2+ (Negative); Glucose Urine UA 4+ (Normal); Ketones Urine 2+ (Negative); Leukocyte Esterase Urine Negative (Negative); Nitrate Urine Negative (Negative); Protein Urine Neg (Negative); RBC Urine RARE /hpf (0-2); Urine Appearance Clear (CLEAR); Urine Color Yellow (Yellow); Urobilinogen Urine Neg (Negative); WBC Urine RARE /hpf (0-5); pH Urine 5 (5-7)
[2022-07-08 17:41] LABS: Glucose Point of Care 281 mg/dL (70-110)
--- NOTE | 2022-07-08 19:18 | PC.NURSE ---
Shift Note: Pt has been off insulin gtt entire shift. He had Lantus 20units in am and pm, plus sliding scale. He had an extra dose of Humalog for blood sugar of 346mg/dl around 1500. His anion gap is creeping back up and his CO2 is creeping back down. No complains of nausea or vomiting. He was stated o IV fluids and hd a small bolus for soft BPs. He did have an episode of irregular fast heart rate, shortness of breath, after we were cleaning up after a bowel incontinence episode. He is negative for covid and flu, tested today. He was febrile this afternoon at 101.3. Acetaminophen given, temp down to 99.8. CT and Echocardiogram done today. Blood cultures and urine sent to lab. He was started on Vancomycin and Zosyn. Urine output of 1475m noted this shift. Frequent safety and comfort rounds continue. Orders and/or nursing care completed as indicated. Patient monitored for response to intervention and treatment(s). Education provided includes Lantus, Humalug, vancomycin, CT, fluids, plan of care and progress.. Patient verbalized understanding of plan of care, progress, medications and testing . Will continue to monitor.
[2022-07-08 20:05] LABS: Glucose Point of Care 326 mg/dL (70-110)
[2022-07-08 23:22] LABS: Glucose Point of Care 284 mg/dL (70-110)
[2022-07-09] VITALS (17 sets, daily range): BP systolic 85–103; BP diastolic 52–63; PULSE 84–102; RESP 15–31; TEMP 36.3–37.2; O2SAT 89–95
[2022-07-09 01:03] LABS: Glucose Point of Care 258 mg/dL (70-110)
[2022-07-09] MEDS: enoxaparin 80 mg/0.8 mL Syringe SUBCUT ×2 (02:06→15:19)
[2022-07-09] MEDS: vancomycin 1,250 MG/250 ML PIGGYBACK 250 MG IV ×2 (02:06→15:16)
[2022-07-09 02:33] LABS: Glucose Point of Care 235 mg/dL (70-110)
[2022-07-09] MEDS: albuterol 2.5 mg/3 mL Neb INHALATION ×4 (02:37→19:24)
[2022-07-09] MEDS: ipratropium 0.5 mg/2.5 mL Neb INHALATION ×4 (02:37→19:27)
[2022-07-09] MEDS: sodium chloride 0.9% 1,000 ML 75 ML IV ×2 (03:03→17:03)
[2022-07-09 03:13] LABS: Basophils % 0.2 %; Hematocrit 32.7 % (42.0-52.0); Hemoglobin 10.9 g/dL (11.7-16.6); Lymphocytes # 0.8 10^3/uL (0.8-4.8); Lymphocytes % 14.7 %; Mean Corpuscular HGB Conc 33.3 g/dL (30.0-36.0); Mean Corpuscular Hemoglobin 30.1 pg (28.0-34.0); Mean Corpuscular Volume 90.3 fl (80-94); Mean Platelet Volume 9.4 fL (7.4-10.4); Monocytes # 0.3 10^3/uL (0.2-0.9); Monocytes % 6.2 %; Neutrophils # 4.15 10^3/uL (1.8-7.7); Nucleated Red Blood Cells % 0 %; Platelet Count 88 10^3/cmm (130-400); Red Blood Count 3.62 10^6/uL (4.1-5.3); Red Cell Distribution Width 15.8 % (12.1-15.1); White Blood Count 5.3 10^3/uL (4.0-10.0)
[2022-07-09 03:36] LABS: Blood Urea Nitrogen 9 mg/dL (8-23); Calcium 7.9 mg/dL (8.5-10.5); Carbon Dioxide 20 mmol/L (22-29); Chloride 102 mmol/L (98-107); Glomerular Filtration Rate 95.6 mL/min (90-130); Glucose 237 mg/dL (65-115); Magnesium 1.9 mg/dL (1.7-2.3); Osmolality Calculated 284 mOsm/kg (285-295); Sodium 134 mmol/L (136-145)
[2022-07-09 03:40] LABS: Anion Gap 15.5 (5-19); Potassium 3.5 mmol/L (3.5-5.1)
[2022-07-09 06:04] LABS: Glucose Point of Care 226 mg/dL (70-110)
[2022-07-09] MEDS: insulin lispro 100 unit/1 mL SUBCUT ×5 (06:28→21:50)
[2022-07-09] MEDS: potassium chloride ER 20 mEq Tablet 40 MEQ PO (07:48)
[2022-07-09] MEDS: piperacillin-tazobactam 3.375 GM in sodium chloride 0.9% (plus) 50 ML IV ×3 (07:50→23:06)
[2022-07-09] MEDS: insulin glargine 100 units/1 mL 20 UNIT SUBCUT (07:57)
[2022-07-09] MEDS: pantoprazole DR 40 mg Tablet PO (07:58)
--- NOTE | 2022-07-09 08:27 | PM.PN ---
Subjective Subjective: Reginald reports he feels better today. No pain. Temperature curve has lessened. Less tachycardia. Medications: Reviewed: Yes Vitals/I&O/Wt Last Vital Signs Temp 99.0 F 07/09/22 06:00 Pulse 93 07/09/22 08:00 Resp 22 H 07/09/22 08:00 BP 99/61 07/09/22 08:00 Pulse Ox 91 07/09/22 08:00 O2 Del Method 07/09/22 02:38 07/08/22 07/09/22 07/09/22 22:59 06:59 14:59 Intake Total 1870 / 2670 1375 / 4045 Output Total 1075 / 1475 900 / 2375 Balance 795 / 1195 475 / 1670 Weight last 48 hrs Weight 80.286 kg Weight 78.1 kg Physical Exam Narrative: General exam is a white male no distress Neck is supple no lymphadenopathy thyromegaly Cardiovascular tachycardic, regular, no murmur. Occasional premature beat Lungs clear no wheezing or crackles. Diminished breath sounds at the bases Abdomen is soft with positive bowel sounds. No obvious organomegaly Extremities no cyanosis clubbing or edema, cap refill brisk Skin no rash Data 07/09/22 02:29 07/09/22 02:29 Micro: Microbiology 07/08/22 13:19 Blood Culture - Preliminary Blood SPECIMEN COLLECTED 07/08/22 13:17 Blood Culture - Preliminary Blood SPECIMEN COLLECTED 07/06/22 12:10 Urine Culture - Final Urine,Clean Catch A&P Assessment and plan (1) Diabetic ketoacidosis: Patient presents with DKA, with no prior history of diabetes Anion gap is closed again Lantus has been started. Continue 20 units twice daily 10 units insulin base, with sliding scale superimposed Diabetic education TSH was checked and normal Continue oral hydration (2) Hyperkalemia: Resolved (3) Acute kidney injury: Likely secondary to dehydration, continue to follow. Resolved (4) Pseudohyponatremia: Resolved (5) Acute encephalopathy: Likely secondary to marked hyperglycemia/DKA consistent with acute metabolic encephalopathy. Resolved (6) Pneumonia: Patient began spiking some fever yesterday. CT chest demonstrated concern for pneumonia. Vancomycin and Zosyn were initiated after blood cultures drawn. Continue vancomycin and Zosyn Sputum culture, MRSA PCR Influenza negative. COVID PCR negative. Not requiring oxygen currently. (7) Pulmonary embolism: Concern with small pulmonary emboli on study. He was on anticoagulation since admission Lovenox added therapeutic dose. If he remains stable changed to oral anticoagulant tomorrow. Echocardiogram demonstrated no strain, preserved EF Venous duplex negative Plan Hypokalemia and hypophosphatemia, resolved Mild thrombocytopenia, continue to monitor Past history of alcoholism Full code Lovenox for DVT prophylaxis Transfer out of ICU Physical therapy evaluation Attestations Medical Necessity Statement*: Needs continued hospitalization for IV antibiotics secondary to pneumonia Coding Level of Care Code Acute Code for Chg Fwd Diagnoses Diabetic ketoacidosis E11.10 Hyperkalemia E87.5 Acute kidney injury N17.9 Pseudohyponatremia R79.89 Acute encephalopathy G93.40 Pneumonia J18.9 Pulmonary embolism I26.99
[2022-07-09] MEDS: budesonide 0.5 mg/2 mL Neb INHALATION ×2 (08:44→19:24)
[2022-07-09 10:33] LABS: Glucose Point of Care 359 mg/dL (70-110)
[2022-07-09] MEDS: insulin lispro 100 unit/1 mL 10 UNIT SUBCUT ×2 (10:36→17:01)
[2022-07-09 16:51] LABS: Glucose Point of Care 383 mg/dL (70-110)
[2022-07-09] MEDS: insulin glargine 100 units/1 mL 24 UNIT SUBCUT (18:24)
[2022-07-09 21:42] LABS: Glucose Point of Care 297 mg/dL (70-110)
[2022-07-10] VITALS (16 sets, daily range): BP systolic 78–102; BP diastolic 45–68; PULSE 64–105; RESP 16–22; TEMP 36.6–37.3; O2SAT 90–98
--- NOTE | 2022-07-10 02:10 | PC.NURSE ---
This nurse called the pharmacy to verify this dose of vancomycin was to be given in accordance with the scheduled trough coming up and they said to go ahead and administer it and they would adjust if needed off of the trough later today.
[2022-07-10] MEDS: vancomycin 1,250 MG/250 ML PIGGYBACK 250 MG IV (02:11)
[2022-07-10] MEDS: enoxaparin 80 mg/0.8 mL Syringe SUBCUT (02:12)
[2022-07-10] MEDS: albuterol 2.5 mg/3 mL Neb INHALATION ×4 (02:30→19:59)
[2022-07-10] MEDS: ipratropium 0.5 mg/2.5 mL Neb INHALATION ×4 (02:30→19:59)
[2022-07-10 05:07] LABS: Basophils % 0.2 %; Eosinophils % 0.5 %; Hemoglobin 11.3 g/dL (11.7-16.6); Lymphocytes # 0.7 10^3/uL (0.8-4.8); Mean Corpuscular HGB Conc 33.2 g/dL (30.0-36.0); Mean Corpuscular Hemoglobin 30.3 pg (28.0-34.0); Mean Corpuscular Volume 91.2 fl (80-94); Mean Platelet Volume 9.3 fL (7.4-10.4); Monocytes # 0.5 10^3/uL (0.2-0.9); Monocytes % 7.9 %; Neutrophils # 4.36 10^3/uL (1.8-7.7); Neutrophils % 76.8 %; Nucleated Red Blood Cells % 0 %; Platelet Count 141 10^3/cmm (130-400); Red Blood Count 3.73 10^6/uL (4.1-5.3); Red Cell Distribution Width 15.9 % (12.1-15.1); White Blood Count 5.7 10^3/uL (4.0-10.0)
[2022-07-10 05:42] LABS: Anion Gap 17.3 (5-19); Blood Urea Nitrogen 7 mg/dL (8-23); Calcium 8.1 mg/dL (8.5-10.5); Carbon Dioxide 19 mmol/L (22-29); Chloride 101 mmol/L (98-107); Glomerular Filtration Rate 111.5 mL/min (90-130); Glucose 200 mg/dL (65-115); Magnesium 1.8 mg/dL (1.7-2.3); Osmolality Calculated 282 mOsm/kg (285-295); Potassium 3.3 mmol/L (3.5-5.1); Sodium 134 mmol/L (136-145)
[2022-07-10 06:26] LABS: Glucose Point of Care 434 mg/dL (70-110)
[2022-07-10] MEDS: piperacillin-tazobactam 3.375 GM in sodium chloride 0.9% (plus) 50 ML IV ×3 (07:38→23:09)
[2022-07-10] MEDS: insulin lispro 100 unit/1 mL 10 UNIT SUBCUT (07:39)
[2022-07-10] MEDS: budesonide 0.5 mg/2 mL Neb INHALATION ×2 (08:29→19:59)
[2022-07-10] MEDS: insulin lispro 100 unit/1 mL SUBCUT ×4 (09:08→21:31)
[2022-07-10] MEDS: pantoprazole DR 40 mg Tablet PO (09:08)
[2022-07-10] MEDS: potassium chloride ER 20 mEq Tablet 40 MEQ PO ×2 (09:11→12:30)
[2022-07-10 09:21] LABS: Cortisol Random 23.12 ug/dL (2.47-19.5)
[2022-07-10] MEDS: insulin glargine 100 units/1 mL 30 UNIT SUBCUT ×2 (09:49→18:01)
[2022-07-10] MEDS: sodium chloride 0.9% 1,000 ML 75 ML IV (09:52)
[2022-07-10 10:51] LABS: Glucose Point of Care 276 mg/dL (70-110)
[2022-07-10] MEDS: insulin lispro 100 unit/1 mL 15 UNIT SUBCUT ×2 (11:46→18:01)
--- NOTE | 2022-07-10 12:59 | P.PN_ITS ---
Subjective Subjective: Reginald feels like he is doing better. He thinks he staggers, or feels little bit weak when he moves around. Blood pressure is somewhat low, especially when he gets up. It was thought this might correct with hydration and control of sugars but has not. Random cortisol level was normal. TSH test ing normal. Medications: Reviewed: Yes Vitals/I&O/Wt Last Vital Signs Temp 98.3 F 07/10/22 08:00 Pulse 93 07/10/22 08:42 Resp 20 H 07/10/22 08:00 BP 78/52 07/10/22 08:41 Pulse Ox 91 07/10/22 08:00 O2 Del Method 07/10/22 08:00 07/09/22 07/10/22 07/10/22 22:59 06:59 14:59 Intake Total 1780 / 2310 1780 / 4090 530 / 530 Output Total 1000 / 1500 700 / 2200 Balance 780 / 810 1080 / 1890 530 / 530 Weight last 48 hrs Weight 84.878 kg Weight 80.286 kg Physical Exam Narrative: General exam is a white male no distress Neck is supple no lymphadenopathy thyromegaly Cardiovascular regular rate and rhythm without murmur Lungs clear to auscultation today Abdomen is soft with positive bowel sounds. No obvious organomegaly Extremities no cyanosis clubbing or edema, cap refill brisk Skin no rash Data 07/10/22 04:30 07/10/22 04:30 Micro: Microbiology 07/08/22 14:15 Urine Culture - Final Urine,Voided 07/09/22 09:00 MRSA Culture - Final Nose 07/08/22 13:19 Blood Culture - Preliminary Blood NEGATIVE TO DATE 07/08/22 13:17 Blood Culture - Preliminary Blood NEGATIVE TO DATE A&P Assessment and plan (1) Diabetic ketoacidosis: Patient presents with DKA, with no prior history of diabetes Increase Lantus. 30 units twice daily. 15 units 3 times daily base with sliding scale mild superimposed Diabetic education TSH was checked and normal Cortisol not low Continue oral hydration (2) Hyperkalemia: Resolved (3) Acute kidney injury: Likely secondary to dehydration, continue to follow. Resolved (4) Pseudohyponatremia: Resolved (5) Acute encephalopathy: Likely secondary to marked hyperglycemia/DKA consistent with acute metabolic encephalopathy. Resolved (6) Pneumonia: Developed fever in the hospital. CT chest demonstrated concern for pneumonia. Vancomycin and Zosyn were initiated after blood cultures drawn. On vancomycin, Zosyn MRSA PCR negative so we will discontinue vancomycin Influenza negative. COVID PCR negative. Not requiring oxygen currently. (7) Pulmonary embolism: Concern with small pulmonary emboli on study. He was on anticoagulation since admission Lovenox added therapeutic dose. Changed to Eliquis Echocardiogram demonstrated no strain, preserved EF Venous duplex negative Plan Hypokalemia and hypophosphatemia, supplement potassium today Hypotension. I think he most likely has autonomic instability and will add mido drine 10 mg 3 times daily Mild thrombocytopenia, improving Past history of alcoholism Full code Eliquis for DVT prophylaxis Continue physical therapy Likely discharge tomorrow if blood pressure improves Attestations Medical Necessity Statement*: Needs continued hospitalization for adjustment of medication for hypotension Coding Level of Care Code Acute Code for Chg Fwd Diagnoses Diabetic ketoacidosis E11.10 Hyperkalemia E87.5 Acute kidney injury N17.9 Pseudohyponatremia R79.89 Acute encephalopathy G93.40 Pneumonia J18.9 Pulmonary embolism I26.99
[2022-07-10 13:42] LABS: Vancomycin Trough 11.2 ug/mL (10-15)
[2022-07-10] MEDS: midodrine 5 mg TABLET 10 MG PO ×2 (15:07→20:09)
[2022-07-10 17:02] LABS: Glucose Point of Care 246 mg/dL (70-110)
[2022-07-10] MEDS: apixaban 5 mg Tablet 10 MG PO (20:09)
[2022-07-10 20:55] LABS: Glucose Point of Care 253 mg/dL (70-110)
[2022-07-11] VITALS (9 sets, daily range): BP systolic 87–105; BP diastolic 53–69; PULSE 77–97; RESP 16–23; TEMP 36.6; O2SAT 89–97
[2022-07-11] MEDS: ipratropium 0.5 mg/2.5 mL Neb INHALATION ×2 (02:54→08:10)
[2022-07-11] MEDS: albuterol 2.5 mg/3 mL Neb INHALATION ×2 (02:54→08:09)
[2022-07-11 04:00] LABS: Blood Urea Nitrogen 7 mg/dL (8-23); Calcium 8.5 mg/dL (8.5-10.5); Carbon Dioxide 25 mmol/L (22-29); Chloride 105 mmol/L (98-107); Glomerular Filtration Rate 95.6 mL/min (90-130); Glucose 139 mg/dL (65-115); Magnesium 1.9 mg/dL (1.7-2.3); Osmolality Calculated 286 mOsm/kg (285-295); Sodium 138 mmol/L (136-145)
[2022-07-11 06:19] LABS: Glucose Point of Care 152 mg/dL (70-110)
[2022-07-11] MEDS: piperacillin-tazobactam 3.375 GM in sodium chloride 0.9% (plus) 50 ML IV (06:46)
--- NOTE | 2022-07-11 07:31 | PC.NURSE ---
Report given to AKILAH Tena
[2022-07-11] MEDS: insulin lispro 100 unit/1 mL SUBCUT ×2 (08:55→12:52)
[2022-07-11] MEDS: pantoprazole DR 40 mg Tablet PO (09:40)
[2022-07-11] MEDS: apixaban 5 mg Tablet 10 MG PO (09:40)
[2022-07-11] MEDS: midodrine 5 mg TABLET 10 MG PO (09:40)
[2022-07-11] MEDS: insulin glargine 100 units/1 mL 30 UNIT SUBCUT (09:41)
[2022-07-11 11:42] LABS: Glucose Point of Care 275 mg/dL (70-110)
--- NOTE | 2022-07-11 12:02 | PC.SOCIAL ---
IMM update IMM updated with patient. Verbalized an understanding. Copy Pg 2 provided. Initialled, dated, timed, and placed in chart.
--- NOTE | 2022-07-11 12:07 | PM.DCS ---
Discharge Providers Date of Admission: 07/06/22 17:16 Date of Discharge: July 11, 2022 Attending Provider at Admission: Jerry Flores MD Attending Provider at Discharge: Rustam Disla MD Primary Care Provider: Mynor Lott MD Diagnoses at Discharge Discharge Diagnosis (1) Diabetic ketoacidosis: Status: Acute (2) Hyperkalemia: Status: Acute (3) Acute kidney injury: Status: Acute (4) Pseudohyponatremia: Status: Acute (5) Acute encephalopathy: Status: Acute (6) Pneumonia: Status: Acute (7) Pulmonary embolism: Status: Acute Reason for Visit Reason for Visit: Slurred speech, Dizziness, Confusion, Weakness Brief History: History as per HPI: Reginald Mckeon is a 72 year old male presenting to the emergency department with elevated sugar.? He reports he had recently been seen in clinic and sugar was about 700.? He had not yet had any treatment started.? Symptoms he had been having for quite a while were increased thirst, urination, dry mouth.? More recently he started having some anorexia, and last night started vomiting repetitively.? No blood in his emesis.? No fever.? Reports no prior history of diabetes, although he has not seen a doctor in over 40 years.? He reports he used to drink very heavily but quit 20 years ago. Hospital Course Hospital Course Patient was admitted to the hospital for management of diabetic ketoacidosis with no prior history of diabetes. He was also found to be hyperkalemic on admission with pseudohyponatremia. He was started on treatment with insulin drip and IV fluids. During hospital he did have episode of low-grade fever along with slight difficulty in breathing for which she was empirically started on IV antibiotics. CTA was done which is concerning for mild pneumonia along with small pulmonary emboli. He was transitioned over to oral anticoagulation. Echocardiogram was done which showed a normal EF without any right heart strain. Patient was also found to have positive orthostatics which was thought to be secondary to autonomic dysfunction in setting of chronic alcoholism. He was started on oral midodrine along with IV hydration which she tolerated well and orthostatics improved. He has been discharged in hemodynamically stable condition on insulin sliding scale, oral Eliquis with advised to drink at least 2 to 3 L of liquid daily. He is advised to change his position from laying to sitting to standing gradually. Physical Exam Narrative: General exam is a white male no distress Neck is supple no lymphadenopathy thyromegaly Cardiovascular regular rate and rhythm without murmur Lungs clear to auscultation today Abdomen is soft with positive bowel sounds. No obvious organomegaly Extremities no cyanosis clubbing or edema, cap refill brisk Skin no rash Discharge Data Studies Completed and Pending Completed Studies During Hospitalization Category Date Time Status CT angio chest w abd pel w con Routine Cat Scan 07/08/22 12:[address] head wo con* [id number] Stat Cat Scan 07/06/22 08:01 Completed XR chest 1V portable [id number] Stat Exams 07/06/22 07:51 [place] [id number] Routine Ultrasound 07/08/22 14:38 Completed CV. echo complete* [id number] Routine Ultrasound 07/08/22 12:45 Completed Pending at discharge Category Date Time Status Blood Culture Stat Lab 07/06/22 08:10 Results Blood Culture Stat Lab 07/08/22 13:19 Results Sputum Culture and Gram Stain Routine Lab 07/09/22 13:50 Received Radiology Impressions Chest X-Ray 07/06/22 07:51 IMPRESSION: 1. No acute cardiopulmonary finding. Head CT 07/06/22 08:01 IMPRESSION: 1. No evidence of intracranial hemorrhage or mass effect. 2. Mild small vessel changes with moderate parenchymal volume loss. 3. Intracranial vascular calcification. 4. No acute intracranial findings. Chest/Abdomen/Pelvis CT 07/08/22 12:58 IMPRESSION: 1. Small bilateral pleural effusions with patchy infiltrates in the lung bases suspicious for pneumonia. 2. Tiny filling defects in a few LEFT upper lobe subsegmental pulmonary arteries suspicious for pulmonary embolus. Proximal main pulmonary arteries are normal. 3. Submucosal enhancement in the RIGHT ascending colon with slight surrounding induration suspicious for mild infectious or inflammatory colitis. 4. Elongated distended gallbladder with large gallstones. Mild gallbladder wall enhancement. No pericholecystic fluid. This could be further evaluated with ultrasound. 5. No other acute findings in the abdomen or pelvis. Notified Jerry Flores MD at 07/08/2022 2:31 PM. Echocardiogram: CONCLUSIONS ?1. Normal left ventricular size, systolic function with no ?diagnostic regional wall motion abnormalities. Left ventricular ?ejection fraction is estimated at 55 %. ?2. Trace to mild tricuspid valve regurgitation. ?3. Small circumferential pericardial effusion. No evidence of ?hemodynamic compromise. ?4. No prior similar studies to compare. ?Estefania Schuster MD ?(Electronically Signed) ?Final Date:? ? ? 08 July 2022 ? 17:45 Laboratory Results WBC 5.7 10^3/uL (4.0-10.0) 07/10/22 04:30 RBC 3.73 10^6/uL (4.1-5.3) L 07/10/22 04:30 Hgb 11.3 g/dL (11.7-16.6) L 07/10/22 04:30 Hct 34.0 % (42.0-52.0) L 07/10/22 04:30 MCV 91.2 fl (80-94) 07/10/22 04:30 MCH 30.3 pg (28.0-34.0) 07/10/22 04:30 MCHC 33.2 g/dL (30.0-36.0) 07/10/22 04:30 RDW 15.9 % (12.1-15.1) H 07/10/22 04:30 Plt Count 141 10^3/cmm (130-400) D 07/10/22 04:30 MPV 9.3 fL (7.4-10.4) 07/10/22 04:30 Neut % (Auto) 76.8 % 07/10/22 04:30 Lymph % (Auto) 13.0 % 07/10/22 04:30 [place] % (Auto) 7.9 % 07/10/22 04:30 Eos % (Auto) 0.5 % 07/10/22 04:30 Baso % (Auto) 0.2 % 07/10/22 04:30 Neut # (Auto) 4.36 10^3/uL (1.8-7.7) 07/10/22 04:30 Lymph # (Auto) 0.7 10^3/uL (0.8-4.8) L 07/10/22 04:30 [place] # (Auto) 0.5 10^3/uL (0.2-0.9) 07/10/22 04:30 Eos # (Auto) 0.0 10^3/uL (0.0-0.8) 07/10/22 04:30 Baso # (Auto) 0.0 10^3/uL (0.0-0.1) 07/10/22 04:30 Nucleated RBC % (auto) 0 % 07/10/22 04:30 Nucleated RBCs # 0.0 /100WBC 07/10/22 04:30 Specimen Type Arterial 07/06/22 08:11 Sample Site Radial, left 07/06/22 08:11 ABG pH 6.96 (7.35-7.45) L* 07/06/22 08:11 ABG pCO2 13.9 mmHg (35-45) L* 07/06/22 08:11 ABG pO2 129.0 mmHg (80.0-100.0) H 07/06/22 08:11 ABG HCO3 3.1 mmol/L (22-26) L 07/06/22 08:11 ABG O2 Saturation 97.1 07/06/22 08:11 ABG Base Excess -27.3 mmol/L (-2.0-2.0) L 07/06/22 08:11 Kevin Test Pos 07/06/22 08:11 A-a O2 Gradient 0.1 mmHg (5-10) L 07/06/22 08:11 Hematocrit 47.2 % (42-52) 07/06/22 08:11 Hgb O2 Saturation 94.5 % (95-100) L 07/06/22 08:11 Carboxyhemoglobin 0.8 %THgb (0.4-20.1) 07/06/22 08:11 Methemoglobin 1.9 % (0.4-1.5) H 07/06/22 08:11 Total Hemoglobin 15.4 g/dL (14-18) 07/06/22 08:11 Sodium 130.0 mmol/L (131-143) L 07/06/22 08:11 Potassium 5.2 mmol/L (3.5-5.0) H 07/06/22 08:11 Glucose 643.0 mg/dL (70-115) H 07/06/22 08:11 Ionized Calcium 1.3 mmol/L (1.1-1.4) 07/06/22 08:11 O2 Delivery Device None 07/06/22 08:11 Finance Executive ID [place] 07/06/22 08:11 Sodium 138 mmol/L (136-145) 07/11/22 03:07 Potassium 4.0 mmol/L (3.5-5.1) 07/11/22 03:07 Chloride 105 mmol/L (98-107) 07/11/22 03:07 Carbon Dioxide 25 mmol/L (22-29) 07/11/22 03:07 Anion Gap 12.0 (5-19) 07/11/22 03:07 BUN 7 mg/dL (8-23) L 07/11/22 03:07 Creatinine 0.8 mg/dL (0.7-1.2) 07/11/22 03:07 GFR Calculation 95.6 mL/min (90-130) 07/11/22 03:07 Glucose 139 mg/dL (65-115) H 07/11/22 03:07 POC Glucose 275 mg/dL (70-110) H 07/11/22 11:00 Estimat Average Glucose 306 07/07/22 02:55 Hemoglobin A1c 12.3 % (4.0-6.0) H 07/07/22 02:55 Calculated Osmolality 286 mOsm/kg (285-295) 07/11/22 03:07 Lactic Acid 5.0 mmol/L (0.5-2.2) H* 07/06/22 08:00 Lactic Acid (Sepsis) 2.6 mmol/L (0.5-2.2) H 07/06/22 11:35 Calcium 8.5 mg/dL (8.5-10.5) 07/11/22 03:07 Phosphorus 1.7 mg/dL (2.5-4.5) L 07/08/22 05:40 Magnesium 1.9 mg/dL (1.7-2.3) 07/11/22 03:07 Total Bilirubin 0.3 mg/dL (0.15-1.2) 07/06/22 08:00 AST 18 U/L (0-40) 07/06/22 08:00 ALT 39 U/L (0-41) 07/06/22 08:00 Alkaline Phosphatase 123 U/L (40-130) 07/06/22 08:00 Troponin T Baseline 34 ng/L (0-15) H 07/06/22 08:00 Troponin T 120 Minute 31.21 ng/L (0-15) H 07/06/22 10:13 Delta Troponin T -2.79 ABS# (0-10) L 07/06/22 10:13 Troponin T Hi Sens 6Hr 35.00 ng/L (0-15) H 07/06/22 13:10 Troponin T Hi Sens 6Hr Delta 1.00 ng/L (0-12) 07/06/22 13:10 Total Protein 7.6 g/dL (6.6-8.7) 07/06/22 08:00 Albumin 4.7 g/dL (3.5-5.2) 07/06/22 08:00 Globulin 2.9 g/dL (1.3-4.6) 07/06/22 08:00 Lipase 167 U/L (13-60) H 07/06/22 08:00 TSH 3.96 uIU/mL (0.27-4.20) 07/06/22 10:13 Random Cortisol 23.12 ug/dL (2.47-19.5) H 07/10/22 04:30 Urine Color Yellow (Yellow) 07/08/22 14:15 Urine Appearance Clear (CLEAR) 07/08/22 14:15 Urine pH 5 (5-7) 07/08/22 14:15 Ur Specific [place] 1.010 (1.005-1.030) 07/08/22 14:15 Urine Protein Neg (Negative) 07/08/22 14:15 Urine Glucose (UA) 4+ (Normal) H 07/08/22 14:15 Urine Ketones 2+ (Negative) H 07/08/22 14:15 Urine Blood 2+ (Negative) H 07/08/22 14:15 Urine Nitrate Negative (Negative) 07/08/22 14:15 Urine Bilirubin Neg (Negative) 07/08/22 14:15 Urine Urobilinogen Neg mg/dL (Negative) 07/08/22 14:15 Ur Leukocyte Esterase Negative (Negative) 07/08/22 14:15 Urine RBC Rare /hpf (0-2) 07/08/22 14:15 Urine WBC Rare /hpf (0-5) 07/08/22 14:15 Ur Squamous Epith Cells None /hpf (0-5) 07/08/22 14:15 Amorphous Sediment 1+ /hpf 07/08/22 14:15 Urine Bacteria Trace /hpf (NONE) 07/08/22 14:15 Hyaline Casts 5-10 /lpf H 07/06/22 12:10 Urine Mucus Trace /hpf 07/06/22 12:10 Vancomycin Trough 11.2 ug/mL (10-15) 07/10/22 13:05 Serum Ketones Positive (Negative) H 07/06/22 08:00 Influenza Type A Ag negative (Negative) 07/08/22 14:00 Influenza Type B Ag negative (Negative) 07/08/22 14:00 SARS-CoV-2 Ag (Rapid) negative (Negative) 07/08/22 14:00 Vitals Last Vital Signs Temp 98 F 07/11/22 11:03 Pulse 97 07/11/22 11:03 Resp 17 07/11/22 11:03 BP 87/58 07/11/22 11:35 Pulse Ox 90 07/11/22 11:03 O2 Del Method 07/11/22 08:00 Discharge Plan Discharge Patient Disposition: Home Health Service Condition: Stable Prescriptions: New pantoprazole 40 mg Tablet,Delayed Release (Dr/Ec) 40 mg PO DAILY 14 Days Qty: 14 0RF midodrine 5 mg Tablet 10 mg PO TID 30 Days Qty: 180 0RF Eliquis DVT-PE Treat 30D Start 5 mg (74 tabs) tablets,dose pack See Rx Instructions .ROUTE .COMPLEX Qty: 74 0RF Rx Instructions: orally per package directions insulin aspart U-100 [Novolog FlexPen U-100 Insulin] 100 unit/mL (3 mL) insulin pen 10 unit SUBCUT TID Qty: 15 0RF insulin aspart U-100 [Novolog FlexPen U-100 Insulin] 100 unit/mL (3 mL) insulin pen See Protocol SUBCUT TID Qty: 15 0RF Protocol: Insulin Corrective High-Dose Regimen Condition: Fingerstick Blood Glucose Dose/Route: Insulin Units Condition: 141-180 mg/dl Dose/Route: 4 units/SQ Condition: 181-220 mg/dl Dose/Route: 6 units/SQ Condition: 221-260 mg/dl Dose/Route: 8 units/SQ Condition: 261-300 mg/dl Dose/Route: 12 units/SQ Condition: 301-350 mg/dl Dose/Route: 14 units/SQ Condition: 351-400 mg/dl Dose/Route: 16 units/SQ Condition: greater than 400 mg/dl Dose/Route: 18 units/SQ insulin detemir U-100 100 unit/mL (3 mL) insulin pen 30 unit SUBCUT BID Qty: 15 0RF amoxicillin-pot clavulanate [Augmentin] 500-125 mg tablet 1 tab PO BID Qty: 10 0RF levofloxacin 500 mg tablet 500 mg PO Q24H 5 Days Qty: 5 0RF Continued albuterol sulfate 90 mcg/actuation HFA aerosol inhaler 2 puff INHALATION Q4H PRN (Reason: Shortness Of Breath) budesonide-formoterol 160-4.5 mcg/actuation HFA aerosol inhaler 2 puff INHALATION BID Discharge Orders: Discharge Order (Routine); Ordered 07/11/22 Ordered By: Rustam Disla Referrals: [facility] [place] Home Care ([facility]) [Outside] Mynor Lott MD [Primary Care Provider] - Discharge Diet: Diabetic and Low Salt Discharge Activity: Resume usual activity and Increase activity as tolerated Patient Instructions: Opioid Safety, Pain Management Activity Restrictions/Additional Instructions: Please take Lantus 30 units morning and evening. Take NovoLog which is a short acting insulin 3 times a day. Take 10 units 3 times a day along with insulin sliding scale. Insulin sliding scale has been provided to you. Please continue taking Eliquis as a blood thinner going forward. Take 10 mg twice daily for next 1 week followed by 5 mg twice daily. Please continue taking midodrine which is the blood pressure medicine 10 mg 3 times daily. Please change position blood test change duration from laying down to sitting to standing gradually. If you have any further dizziness continue evaluation please present to the ER. Discharge Attestations Time Spent in Discharge Care*: greater than 30 min Specific Discharge Activities: educating patient, discussing with pcp/other providers, discussing with disease case manager rn/social workers/dc planners, documenting/other paperwork and evaluating patient/reviewing data Status at Discharge: Cognitive status at discharge: cognitively intact, Behavioral status at discharge: cooperative, Functional status at discharge: independent ambulation, Overall status at discharge: patient is back to baseline Quality Metrics Clinical Quality Measures [ No reported AMI, CVA or VTE this stay] Coding Level of Care Code Acute Chg FW DC note Diagnoses Diabetic ketoacidosis E11.10 Hyperkalemia E87.5 Acute kidney injury N17.9 Pseudohyponatremia R79.89 Acute encephalopathy G93.40 Pneumonia J18.9 Pulmonary embolism I26.99
[2022-07-11] MEDS: insulin lispro 100 unit/1 mL 15 UNIT SUBCUT (12:51)
== END 2022-07-11 13:36 | disposition home health service (06) | DRG 637 ==
LOC: ER 12:34 → ICU 17:16 → MEDSURG 07-09 12:22
PROVIDERS: Admitting Provider Internal Medicine; Emergency Provider Family Medicine; PCP Family Medicine; Visit Provider Student in an Organized Health Care Education/Training Program
DX: E11.10 Type 2 diabetes mellitus with ketoacidosis without coma (principal); G93.41 Metabolic encephalopathy; I26.99 Other pulmonary embolism without acute cor pulmonale; J18.9 Pneumonia, unspecified organism; N17.9 Acute kidney failure, unspecified; E87.5 Hyperkalemia; G31.2 Degeneration of nervous system due to alcohol; I95.1 Orthostatic hypotension; J44.9 Chronic obstructive pulmonary disease, unspecified; D69.6 Thrombocytopenia, unspecified; E83.39 Other disorders of phosphorus metabolism; R00.0 Tachycardia, unspecified; F10.21 Alcohol dependence, in remission; Z87.891 Personal history of nicotine dependence
CPT/HCPCS: 36415; 36416; 36600; 70450; 71045; 71275; 74177; 80048; 80051; 80053; 80202; 81001; 82009; 82330; 82533; 82805; 82962; 83036; 83605; 83690; 83735; 84100; 84443; 84484; 85025; 87040; 87070; 87086; 87205; 87426; 87641; 87804; 93005; 93306; 93970; 94640; 96365; 96366; 96372; 96375; 97110; 97116; 97161; 99285; J1644; J1650; J1815; J2405; J2543; J3370; J3480; J7030; J7050; J7613; J7626; J7644; Q9967

== ENCOUNTER 2022-11-16 10:22 | Outpatient (CLI) | payer MEDICARE, MEDICAID, SELFPAY ==
--- NOTE | 2022-11-16 10:31 | CT_ITS ---
WS: [id number] LDCT LUNG CANCER SCREENING HISTORY: HISTORY OF TOBACCO USE TECHNIQUE: Axial imaging performed from the apices to 1 cm below the costophrenic angles. Coronal and sagittal reformats are submitted with axial MIP series. All CT scans at [facility] use at least one of these dose optimization techniques: automated exposure control; mA and/or kV adjustment per patient size (includes targeted exams where dose is matched to clinical indication); or iterativ e reconstruction. DLP: 69.21 mGy.cm DIvol: Mean CTDIvol: 1.40 (mGy) COMPARISON: 07/08/2022 Diagnostic quality: Mild motion artifact from breathing. Lungs: Hyperexpanded. Mild emphysema. Mild interstitial thickening noted bilaterally. There are a few very tiny micronodules at the lung bases. Noncalcified 4 mm nodule periphery RIGHT lower lobe no tip nge since 07/08/2022. No endobronchial lesions. Heart: Normal size heart with no pericardial effusion.. Other findings: No pericardial or pleural effusions. Benign calcified LEFT hilar lymph nodes. Mild at herosclerosis aorta. No adenopathy. Small hiatal hernia. Hepatic and splenic granulomata. Bilateral a drenal nodules measure up to 18 mm. Also noted on the prior exam and thought to be adenomas. CT/CT lung screening [id number] IMPRESSION: LUNG-RADS: 2-Benign Appearance or Behavior FOLLOW UP: 12 Month: Continue annual screening with LDCT OTHER FINDINGS (S MODIFIER): None.
== END 2022-11-16 10:23 | disposition home or self-care (01) ==
LOC: RAD 10:24
PROVIDERS: PCP Family Medicine; Visit Provider Family Medicine
DX: Z12.2 Encounter for screening for malignant neoplasm of respiratory organs (principal); Z87.891 Personal history of nicotine dependence
CPT/HCPCS: 71271